=== PATIENT | female | born 1985 | race African-American/Black ===

== ENCOUNTER 2016-12-10 15:54 | Emergency (ER) | payer MEDICAID ==
[~2016-12-10] VITALS: Ht 167.6 cm; Wt 95.3 kg
[2016-12-10 16:05] VITALS: BP 141/91
== END 2016-12-10 17:07 | disposition left against medical advice (07) ==
LOC: ER 15:54
DX: M25.562 Pain in left knee (principal); M54.2 Cervicalgia; Z53.21 Procedure and treatment not carried out due to patient leaving prior to being seen by health care provider; V89.2XXA Person injured in unspecified motor-vehicle accident, traffic, initial encounter; Y93.89 Activity, other specified; Y92.89 Other specified places as the place of occurrence of the external cause; Y99.8 Other external cause status

== ENCOUNTER 2019-10-11 10:56 | Emergency (ER) | payer MEDICAID, OTHER ==
[~2019-10-11] VITALS: Ht 167.6 cm; Wt 104.3 kg
[2019-10-11 11:09] VITALS: BP 167/85
[2019-10-11] MEDS ORDERED: KETOROLAC TROMETH 60MG/2ML VIAL IM ONE (12:15)
== END 2019-10-11 13:04 | disposition home or self-care (01) ==
LOC: ER 10:56
DX: S16.1XXA Strain of muscle, fascia and tendon at neck level, initial encounter (principal); X58.XXXA Exposure to other specified factors, initial encounter; Y93.89 Activity, other specified; Y92.89 Other specified places as the place of occurrence of the external cause; Y99.0 Civilian activity done for income or pay
CPT/HCPCS: 96372; 99283; J1885